=== PATIENT | male | born 1960 | race Caucasian/White ===

== ENCOUNTER → 2023-01-20 08:12 | Outpatient (BNVA) | payer OTHER, SELFPAY | PROVIDERS: Family Provider Family Medicine; PCP Family Medicine; Visit Provider Family Medicine | DX: R73.03 Prediabetes (principal); I10 Essential (primary) hypertension; F32.A Depression, unspecified; R93.1 Abnormal findings on diagnostic imaging of heart and coronary circulation | CPT/HCPCS: 80053; 80061; 83036; 85025 ==

== ENCOUNTER → 2023-09-08 09:09 | Outpatient (BNVA) | payer MEDICARE, SELFPAY | PROVIDERS: Family Provider Family Medicine; PCP Family Medicine; Visit Provider Family Medicine | DX: R19.7 Diarrhea, unspecified (principal) | CPT/HCPCS: 87045; 87177; 87209; 87427; 87449; 87493 ==

== ENCOUNTER → 2024-01-26 07:55 | Outpatient (BNVA) | payer MEDICARE, OTHER, SELFPAY | PROVIDERS: Family Provider Family Medicine; PCP Family Medicine; Visit Provider Family Medicine | DX: I10 Essential (primary) hypertension (principal); R73.03 Prediabetes | CPT/HCPCS: 80053; 80061; 83036; 85025 ==

== ENCOUNTER → 2024-10-17 16:32 | Outpatient (BNVA) | payer OTHER, SELFPAY | PROVIDERS: Family Provider Family Medicine; PCP Family Medicine; Visit Provider Family Medicine | DX: M79.18 Myalgia, other site (principal) | CPT/HCPCS: 80053; 83735; 84443; 85025; 85651; 86140; 86618; 86666; 86757 ==

== ENCOUNTER → 2024-11-01 10:55 | Outpatient (BNVA) | payer MEDICARE, OTHER, SELFPAY | PROVIDERS: Family Provider Family Medicine; PCP Family Medicine; Visit Provider Family Medicine | DX: M79.18 Myalgia, other site (principal) | CPT/HCPCS: 86618; 86666; 86757 ==

== ENCOUNTER → 2024-11-22 08:19 | Outpatient (BNVA) | payer MEDICARE, SELFPAY | PROVIDERS: Family Provider Family Medicine; PCP Family Medicine; Visit Provider Family Medicine | DX: I10 Essential (primary) hypertension (principal); M25.50 Pain in unspecified joint; M79.18 Myalgia, other site; R51.9 Headache, unspecified; R19.7 Diarrhea, unspecified | CPT/HCPCS: 82175; 83655; 83825; 84550; 85025; 85651; 86003; 86008; 86140; 86160; 86162; 86235; 86255; 86376; 87045; 87177; 87209; 87427; 87449; 87493; 87798 ==

== ENCOUNTER 2024-12-06 07:14 | Outpatient (CLI) | payer MEDICARE, SELFPAY ==
--- NOTE | 2024-12-06 08:00 | NM_ITS ---
WS: [id number] NUCLEAR MEDICINE BONE SCAN Radiopharmaceutical: 25.2 Tc-99m MDP mCi IV Injection site: Antecubital Postinjection imaging delay: 1 hr CLINICAL INFORMATION: bone pain COMPARISON: None. FINDINGS: Bone lesions: There are no osseous lesions suspicious for metastatic disease. Soft tissue contours: Normal. Kidneys: Normal. 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 NM/NM bone scan whole body* [id number] IMPRESSION: 1. No evidence of osseous metastatic disease. 2. 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
== END 2024-12-06 07:15 | disposition home or self-care (01) ==
PROVIDERS: PCP Family Medicine; Visit Provider Family Medicine
DX: M79.18 Myalgia, other site (principal); M25.50 Pain in unspecified joint
CPT/HCPCS: 78306; A9561

== ENCOUNTER 2024-12-12 12:27 | Outpatient (CLI) | payer MEDICARE, SELFPAY ==
[2024-12-12 14:25] LABS: Blood Urea Nitrogen 15 mg/dL (8-23)
--- NOTE | 2024-12-12 14:30 | CT_ITS ---
WS: [id number] CT CHEST, ABDOMEN AND PELVIS WITH CONTRAST HISTORY: r/o lymphoma TECHNIQUE: Contiguous 5 mm axial imaging performed through the chest, abdomen and pelvis with IV contrast, oral contrast has been provided. Coronal and sagittal reformats chest. Coronal and sagittal reformats through the abdomen and pelvis. All CT scans at [facility] use at least one of these dose optimization techniques: automated exposure control; mA and/or kV adjustment per patient size (includes targeted exams where dose is matched to clinical indication); or iterative reconstruction. CONTRAST: Omnipaque 350; 100 mL IV. DLP: 1402.28 mGy.cm COMPARISON: 11/27/[address]: Lungs are clear and well aerated. Subsegmental atelectasis at the lung bases. No pneumonia. No pulmonary mass or nodule. No pericardial or pleural effusions. Heart size is slightly enlarged. No mediastinal or hilar lymphadenopathy. Normal size aorta and pulmonary artery. Abdomen CT: Liver and spleen are normal size. Normal enhancement. Spleen is normal size. Gallbladder is contracted. No adjacent inflammation. Normal pancreas and adrenal glands. No renal obstruction. Mild atherosclerosis aorta. Small amount of calcified plaque extends into the SMA and celiac axis. Normal portal vein. Splenic varices are noted in the LEFT upper abdomen. No ascites or adenopathy. No GI tract obstruction. No colitis. Normal appendix. Minimal diverticular disease without acute diverticulitis. Pelvic CT: Well-distended urinary bladder. No adenopathy. No ascites. Partial fusion of the SI joints. No destructive bone lesion. Lumbar spondylosis. CT/CT chest abdpel w/*[id number] IMPRESSION: 1. No pathologically enlarged lymph nodes in the chest, abdomen or pelvis. 2. No pulmonary mass or nodule. 3. Normal size liver. 4. Splenic varicosities. 5. No GI tract obstruction. No colitis. 6. No ascites.
[2024-12-12] MEDS: iohexol 350 mg/mL 500 mL Btl (per mL) PO (14:37)
[2024-12-12] MEDS: iohexol 350 mg/mL 500 mL Btl (per mL) IV (14:38)
== END 2024-12-12 12:28 | disposition home or self-care (01) ==
PROVIDERS: PCP Family Medicine; Visit Provider Family Medicine
DX: R79.82 Elevated C-reactive protein (CRP) (principal); R19.7 Diarrhea, unspecified; J98.11 Atelectasis; I70.0 Atherosclerosis of aorta; I86.8 Varicose veins of other specified sites
CPT/HCPCS: 71260; 74177; 82565; 84520

== ENCOUNTER 2024-12-23 16:15 | Outpatient (CLI) | payer MEDICARE, SELFPAY ==
--- NOTE | 2024-12-23 17:15 | MRR_ITS ---
PROCEDURE INFORMATION: Exam: MR Cervical Spine Without Contrast Exam date and time: 12/23/2024 4:56 PM Age: 64 years old Clinical indication: Neck pain; Additional info: Neck pain/ arm weakness TECHNIQUE: Imaging protocol: Magnetic resonance imaging of the cervical spine without contrast. COMPARISON: NM bone scan whole body* [id number] 12/06/2024 8:33 AM FINDINGS: ALIGNMENT: There is straightening and slight reversal of the normal cervical lordosis, apex at C3-C4. No significant subluxation. 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 There are degenerative fibrovascular marrow changes from C3-C4 through C7-T1. No evidence of acute fracture or suspicious osseous lesion. Prominent anterior spurs from C3-C4 through C5-C6. SPINAL CORD: Small in caliber particularly at the C5 and C6 levels with small areas of scattered T2 hyperintensity throughout the cord, particularly at the C5 and C6 levels, but also at the C2-C3 level and to a lesser extent throughout the remainder of the cord. Findings are suspicious for myelomalacia. PARASPINAL SOFT TISSUES: Unremarkable. OTHER: None. C2-3: Mild left-sided uncovertebral hypertrophy and facet joint arthropathy results in mild left-sided neural foraminal stenosis. The central canal and right neural foramen are patent. C3-4: Moderate decrease in disc height with a 4 mm AP posterior disc/osteophyte complex, bilateral uncovertebral hypertrophy and facet joint arthropathy, combined with short pedicles, resulting in moderate central canal stenosis and severe bilateral neural foraminal stenosis. C4-5: Mild decrease in disc height with a 4 mm AP posterior disc/osteophyte complex, slightly asymmetric to the left, with bilateral uncovertebral hypertrophy and facet joint arthropathy, combined with short pedicles, resulting in moderate central canal stenosis with moderate to severe right-sided and severe left-sided neural foraminal stenosis. C5-6: Mild decrease in disc height with a 5 mm AP posterior disc/osteophyte complex and tiny superimposed left paracentral disc protrusion measuring 6 mm AP dimension which mildly flattens the left ventral thecal sac. Bilateral uncovertebral hypertrophy and facet joint arthropathy. These findings, combined with short pedicles, result in severe central canal stenosis and severe bilateral neural foraminal stenosis. C6-7: Moderate decrease in disc height. 5 mm AP broad-based left paracentral disc protrusion. Bilateral uncovertebral hypertrophy, left greater than right. These findings, combined with short pedicles, result in severe central canal stenosis with moderate right-sided and severe left-sided neural foraminal stenosis.. C7-T1: [id number] decrease in disc height. 3 mm AP broad-based disc bulge. Mild bilateral uncovertebral hypertrophy and moderate bilateral facet joint arthropathy. Findings result in moderate bilateral neural foraminal stenosis. No significant central canal stenosis. MR/MR cervical spin wo con* [id number] IMPRESSION: 1. Straightening and slight reversal of the normal cervical lordosis, apex at C3-C4. 2. 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 3. Small caliber cervical cord with small scattered areas of T2 hyperintensity, particularly at the C5 and C6 levels most suggestive of myelomalacia and atrophic changes. A small superimposed focus of acute cord edema is possible. Please correlate clinically. 4. Severe central canal stenosis and severe bilateral neural foraminal stenosis at C5-C6. 5. Severe central canal stenosis with moderate right-sided and severe left-sided neural foraminal stenosis at C6-C7. 6. Moderate to severe central canal stenosis and severe bilateral neural foraminal stenosis at C3-C4. 7. Moderate central canal stenosis with moderate to severe right-sided and severe left-sided neural foraminal stenosis at C4-C5.
== END 2024-12-23 16:16 | disposition home or self-care (01) ==
LOC: RAD 16:18
PROVIDERS: PCP Family Medicine; Visit Provider Family Medicine
DX: M50.90 Cervical disc disorder, unspecified, unspecified cervical region (principal); M47.892 Other spondylosis, cervical region; M48.02 Spinal stenosis, cervical region; M25.78 Osteophyte, vertebrae; M50.222 Other cervical disc displacement at C5-C6 level; M50.223 Other cervical disc displacement at C6-C7 level
CPT/HCPCS: 72141

== ENCOUNTER 2025-02-07 07:54 | Outpatient (CLI) | payer MEDICARE, SELFPAY ==
--- NOTE | 2025-02-07 08:01 | XRR_ITS ---
PROCEDURE INFORMATION: Exam: XR Chest Exam date and time: 02/07/2025 08:13 AM Age: 64 years old Clinical indication: Cough and wheezing; Cough & wheezing w/ fatigue x few weeks. TECHNIQUE: Imaging protocol: Radiologic exam of the chest. Views: 2 views. COMPARISON: MR cervical spin wo con* [id number] 12/23/2024 04:56 PM FINDINGS: Lungs: Unremarkable. No consolidation. Pleural spaces: Unremarkable. No pleural effusion. No pneumothorax. Heart/Mediastinum: Prominent cardiac silhouette, likely exaggerated by the lower lung volumes. Diaphragm: Elevated left hemidiaphragm. Bones/joints: Unremarkable. XR/XR chest 2V* [id number] IMPRESSION: 1. Low lung volumes with prominent cardiac silhouette. 2. No airspace consolidation.
== END 2025-02-07 07:55 | disposition home or self-care (01) ==
PROVIDERS: PCP Family Medicine; Visit Provider Family Medicine
DX: R06.00 Dyspnea, unspecified (principal); M35.3 Polymyalgia rheumatica; I10 Essential (primary) hypertension; R91.8 Other nonspecific abnormal finding of lung field
CPT/HCPCS: 71046; 80053; 83880; 85025; 86140

== ENCOUNTER 2025-02-09 08:55 | Outpatient (CLI) | payer MEDICARE, OTHER, SELFPAY ==
--- NOTE | 2025-02-09 10:00 | USCV_ITS ---
Akshat Chamorro Age: 64 Gender: M : 1960 Exam Date: 02/09/2025 09:13 Ordering Phys: Kenny Guy MD Technologist: Exam Location: [facility] – [place] Indication: cp sob BP: 150 / 80 HR: 72 Rhythm: Sinus Technical Quality: Adequate MEASUREMENTS (Male / Female) Normal Values 2D ECHO LV Diastolic Diameter PLAX 5.5 cm 4.2 - 5.9 / 3.9 - 5.3 cm IVS Diastolic Thickness 1.5 cm 0.6 - 1.0 / 0.6 - 0.9 cm IVS Systolic Thickness 2.0 cm LVPW Diastolic Thickness 1.5 cm 0.6 - 1.0 / 0.6 - 0.9 cm LVPW Systolic Thickness 2.3 cm LVOT Diameter 2.0 cm LV Ejection Fraction 2D Teich 59.6 % LV Ejection Fraction MOD 4C 75.7 % LV Ejection Fraction MOD 2C 59.4 % LV Ejection Fraction 2C AL 59.0 % LA Diameter 3.6 cm RA Systolic Volume 4C AL 77.0 ml RA Systolic Volume 4C MOD 72.2 ml LA Sys Volume AL 71.4 cm cubed LA Sys Volume Index AL 28.4 cm cubed/m squared Aorta at Sinotubular Diameter 3.2 cm IVC Diameter 1.7 cm M-MODE LA Ao Ratio MM 1.1 AV Cusp Separation MM 2.8 cm DOPPLER AV Peak Velocity 138.0 cm/s LVOT Peak Velocity 82.0 cm/s AV Area Cont Eq vti 2.2 cm squared AV Area Cont Eq pk 2.0 cm squared MV Peak Velocity 89.0 cm/s TR Peak Velocity 206.0 cm/s TR Peak Gradient 17.0 mmHg TV Peak E Velocity 102.0 cm/s PV Peak Velocity 114.0 cm/s FINDINGS Left Ventricle Left ventricular ejection fraction is estimated at 55-60%. No regional wall motion abnormalities. Moderate left ventricular hypertrophy Right Ventricle Normal in size and function Right Atrium Normal in size Left Atrium Normal in size IA Septum Grossly normal Mitral Valve Structurally normal mitral valve. Mild mitral regurgitation Aortic Valve Structurally normal aortic valve. No significant stenosis or regurgitation Tricuspid Valve Insufficient TR jet to calculate RVSP Pulmonic Valve Not well-visualized Pericardium Normal Aorta Normal in size IVC Appears to be normal CONCLUSIONS LV systolic function is normal with EF of 55 to 60%. Moderate left ventricular hypertrophy Mild mitral regurgitation. Nawaf Trammell MD (Electronically Signed) Final Date: 11 February 2025 13:49 S
== END 2025-02-09 08:56 | disposition home or self-care (01) ==
LOC: RAD 08:55
PROVIDERS: PCP Family Medicine; Visit Provider Family Medicine
DX: R07.9 Chest pain, unspecified (principal); R06.00 Dyspnea, unspecified; I51.7 Cardiomegaly; I34.0 Nonrheumatic mitral (valve) insufficiency
CPT/HCPCS: 93306

== ENCOUNTER → 2025-02-28 07:15 | Outpatient (BNVA) | payer MEDICARE, SELFPAY | PROVIDERS: PCP Family Medicine; Visit Provider Family Medicine | DX: M35.3 Polymyalgia rheumatica (principal) | CPT/HCPCS: 80053; 86140 ==

== ENCOUNTER 2025-03-20 14:33 | Outpatient (CLI) | payer MEDICARE, SELFPAY | END 2025-03-20 14:34 | disposition home or self-care (01) | LOC: SLEEP 14:34 | PROVIDERS: PCP Family Medicine; Referring Provider Family Medicine; Visit Provider Internal Medicine Pulmonary Disease | DX: G47.33 Obstructive sleep apnea (adult) (pediatric) (principal); G47.36 Sleep related hypoventilation in conditions classified elsewhere | CPT/HCPCS: G0399 ==